=== PATIENT | male | born 1975 | race Caucasian/White ===

== ENCOUNTER 2017-05-02 10:21 | Emergency (ER) | payer OTHER ==
[~2017-05-02] VITALS: Ht 180.3 cm; Wt 86.2 kg
[2017-05-02] MEDS ORDERED: SYNTHROID100 MCG (11:08)
== END 2017-05-02 14:07 | disposition home or self-care (01) ==
LOC: ER 10:21
DX: B34.9 Viral infection, unspecified (principal)

== ENCOUNTER 2017-10-12 10:38 | Outpatient (CLI) | payer OTHER ==
[~2017-10-12 10:38] MED LIST: SYNTHROID100 MCG
== END 2017-10-12 10:42 | disposition home or self-care (01) ==
LOC: SONOGRAMA 10:38
DX: E04.8 Other specified nontoxic goiter (principal)

== ENCOUNTER 2017-10-18 06:11 | Outpatient (CLI) | payer OTHER | END 2017-10-18 06:39 | disposition home or self-care (01) | LOC: LAB 06:11 | DX: E11.65 Type 2 diabetes mellitus with hyperglycemia (principal); E78.00 Pure hypercholesterolemia, unspecified; B20 Human immunodeficiency virus [HIV] disease ==

== ENCOUNTER 2018-06-08 10:16 | Emergency (ER) | payer OTHER ==
[~2018-06-08] VITALS: Ht 177.8 cm; Wt 88.5 kg
[2018-06-08] MEDS ORDERED: KETO10TA2 PO (12:47)
[2018-06-08] MEDS ORDERED: NORFLEX100MG PO (12:47)
== END 2018-06-08 13:01 | disposition home or self-care (01) ==
LOC: ER 10:16
DX: R51 Headache (principal)

== ENCOUNTER 2021-01-24 07:09 | Outpatient (CLI) | payer OTHER ==
[~2021-01-24 07:09] MED LIST changes: +KETO10TA2 PO; +NORFLEX100MG PO
== END 2021-01-24 07:10 | disposition home or self-care (01) ==
LOC: SONOGRAMA 07:09 → MAMO-SONO 07:15
PROVIDERS: ATTEND Internal Medicine Endocrinology, Diabetes & Metabolism
DX: E04.8 Other specified nontoxic goiter (principal)

== ENCOUNTER 2024-03-08 07:15 | Outpatient (CLI) | payer OTHER | END 2024-03-08 07:17 | disposition home or self-care (01) | LOC: SONOGRAMA 07:15 | PROVIDERS: ATTEND Internal Medicine Endocrinology, Diabetes & Metabolism | DX: E04.8 Other specified nontoxic goiter (principal) ==